=== PATIENT | female | born 1940 | race Caucasian/White ===

== ENCOUNTER 2024-06-03 14:16 | Emergency (ER) | payer MEDICARE, OTHER, SELFPAY ==
[2024-06-03 14:23] VITALS: BP 131/67
[2024-06-03 14:59] LABS: % Basophils 0.2 % (0-2); % Eosinophils 1.6 % (0-6); % Immature Granulocytes 0.4 % (0-0.5); % Monocytes 6.1 % (1.7-9.3); % Neutrophils 77.7 % (42.2-75.2); Absolute Eosinophils 0.2 10^3/uL (0-0.7); Absolute Lymphocytes 1.6 10^3/uL (1.2-3.4); Absolute Monocytes 0.7 10^3/uL (0.1-0.6); Absolute Neutrophils 8.8 10^3/uL (1.4-6.5); Hematocrit 36.5 % (37.0-47.0); Hemoglobin 12.3 g/dL (12.0-16.0); Mean Corp Hgb Conc. 33.7 g/dL (33.0-37.0); Mean Corpuscular Hgb 31.1 pg (27.0-31.0); Mean Corpuscular Volume 92.4 fL (81.0-99.0); Mean Platelet Volume 8.9 fL (7.4-10.4); Nucleated Red Blood Cells % 0 %; Platelet Count 224 10^3/uL (130-400); Red Blood Cell Count 3.95 10^6/uL (4.20-5.40); Red Cell Dist. Width 13.4 % (11.5-14.5); White Blood Cell Count 11.3 10^3/uL (4.8-10.8)
[2024-06-03 15:13] LABS: ALT (SGPT) 15 U/L (0-35); AST (SGOT) 20 U/L (14-36); Albumin 3.8 g/dl (3.5-5.0); Alkaline Phosphatase 70 U/L (38-126); Blood Urea Nitrogen 16 mg/dl (7-17); Calcium 9.2 mg/dl (8.4-10.2); Carbon Dioxide 24 mmol/L (22-30); Chloride 95 mmol/L (98-107); Glucose 145 mg/dl (70-99); Potassium 4.6 mmol/L (3.5-5.1); Sodium 128 mmol/L (135-145); Total Bilirubin 0.6 mg/dl (0.2-1.3); Total Protein 6.4 g/dl (6.3-8.2); eGFR > 60.00
[2024-06-03 15:33] LABS: Troponin I < 0.012 ng/ml
[2024-06-03 17:54] VITALS: BMI 26.7
[2024-06-03 18:00] VITALS: BP 136/55
--- NOTE | 2024-06-03 18:39 | ED.SKININJ ---
HPI-Injury
General
Chief Complaint: Head Injury
Source: patient
Exam Limitations: none
Time Seen by Provider: 06/03/24 18:21
History of Present Illness-Injury
Initial Injury comments:
83-year-old female presents after a fall. She was standing in line at the pharmacy started to feel weak and had some discomfort between her shoulders and fell. She did not pass out. She felt the discomfort in her shoulders went away but she hit
her head on a shelf on the way down. She is on Eliquis for history of A-fib has pacemaker. No chest pain. No shortness of breath. Her only complaint right now is pain to the right side of her head from the fall dorsalis denies arm or leg pain.
No paresthesias. She has been ambulatory here since the fall without any difficulty.
Past History
Past History
ED Past Medical History: HTN, Hypothyroidism, Other (OA), Other (IBS) and Other (Prior admission with bacteremia)
ED Past Surgical History: Appendectomy, Cholecystectomy and Gynecological (Hysterectomy)
Social History
Tobacco: Non-smoker
Alcohol: None
Drug: None
Personal:
Living: alone
Employment: Retired
Family History
Family History: Other (Noncontributory)
Phy Exam
Physical Exam
Physical Exam:
General: Well-appearing female no acute respiratory distress
HEENT normocephalic pupils equal round reactive to light 2 cm superficial laceration right parietal scalp
Musculoskeletal exam: The cervical spine is nontender. She is nontender over the lumbar spine or sacrum
Heart: Regular rate and rhythm
Lungs: Clear no wheeze
Vascular: 2+ symmetric pulses bilateral wrist
Neurologic: Alert and oriented no facial asymmetry good strength to the upper and lower extremities
Course
Orders/Labs/Results
Orders:
Orders
06/03/24 14:18
Electrocardiogram (*1) Urgent
Reason for Study: Fatigue / Weakness
CT Head W/o Iv Contrast Urgent
Comment:
Reason For Exam: head injury
06/03/24 14:19
EKG- Treatment ONCE
06/03/24 14:46
Complete Blood Count/With Diff Urgent
Comprehensive Metabolic Panel Urgent
Troponin I Urgent
06/03/24 18:31
Interrogate Pacemaker- Treatment ONCE
Abnormal Lab Results
06/03/24
14:46
WBC 11.3 H 10^3/uL
(4.8-10.8)
RBC 3.95 L 10^6/uL
(4.20-5.40)
Hct 36.5 L %
(37.0-47.0)
MCH 31.1 H pg
(27.0-31.0)
Absolute Neuts (auto) 8.8 H 10^3/uL
(1.4-6.5)
Absolute Monos (auto) 0.7 H 10^3/uL
(0.1-0.6)
Neutrophils % 77.7 H %
(42.2-75.2)
Lymphocytes % 14.0 L %
(20.5-51.1)
Sodium 128 L mmol/L
(135-145)
Chloride 95 L mmol/L
(98-107)
Glucose 145 H mg/dl
(70-99)
06/03/24 14:46
06/03/24 14:46
Vital Signs
Initial and Last Documented VS:
Initial Vital Signs
Temp Pulse Resp BP Pulse Ox
98.2 F 77 18 131/67 96
06/03/24 14:23 06/03/24 14:23 06/03/24 14:23 06/03/24 14:23 06/03/24 14:23
Last Documented Vital Signs
Temp Pulse Resp BP Pulse Ox
97.7 F 80 18 136/55 94
06/03/24 17:56 06/03/24 17:56 06/03/24 17:56 06/03/24 18:00 06/03/24 17:56
MDM/Problems Addressed
Differential Diagnosis Includes:
Fall. Question vasovagal episode versus arrhythmia. Patient did have discomfort in her shoulders however this is very transient and resolved within seconds. Currently no discomfort. She is not hyper. Do not clinically suspect dissection.
Concern with head strike on Eliquis for possible intracranial hemorrhage. CT of the head was reviewed and is negative for intracranial injury other than a laceration to the scalp. Laceration of the scalp will be closed with skin patricia. Will
check labs and interrogate pacemaker
*Critical Care Note
Total Time (30-74mins, 75-104mins- exclusive of procedures): Not Applicable
Update Note
Update Note:
Pacemaker interrogated. No significant concern on report. The wound on the head was irrigated with saline and closed with skin patricia. 5 skin patricia were needed to close the wound. Labs reviewed without significant finding. Vital signs
remained stable. Stable for discharge.
ED Attending Note
-
Portions of this chart may have been created with voice recognition software.� Occasional wrong word or��sound alike� substitutions may have occurred due to the inherent limitations of voice recognition software.
Discharge Plan
Departure
Patient Disposition: Home (Routine Discharge)
Date of Disposition: 06/03/24
Time of Disposition: 19:53
Patient with high blood pressure during this ER visit?: No
Discharge Problem:
Fall, Laceration of scalp
Instructions: Head Injury in Adults (DC)
Prescriptions:
No Action
acyclovir 400 MG tablet
400 mg PO DAILY
aspirin 81 MG tablet,delayed release (DR/EC)
162 mg PO DAILY
zolpidem 10 MG tablet
10 mg PO HSPRN PRN (Reason: sleep)
ondansetron 4 MG tablet,disintegrating
4 mg PO Q8HPRN PRN (Reason: nausea)
Diazide
37.5 mg PO DAILY
Fluctonase
2 spray inhalation DAILY
Rivero Probiotic
2 tab PO DAILY
levothyroxine [Synthroid] 88 MCG tablet
88 mcg PO DAILY
alprazolam 0.25 MG tablet
0.25 mg PO Q8HPRN PRN (Reason: anxiety)
ammonium lactate [Lac-Hydrin] 385 GM cream
280 gm TP PRN PRN (Reason: skin irritation)
polyethylene glycol 3350 [Miralax] 119 GM powder
119 gm PO PRN PRN (Reason: consipation)
metronidazole 500 MG tablet
500 mg PO TID Qty: 30 0RF
levofloxacin 500 MG tablet
500 mg PO DAILY Qty: 10 0RF
tramadol 50 MG tablet
50 mg PO Q8HPRN PRN (Reason: pain) Qty: 12 0RF
Referrals:
Gino Anaya MD [Family Provider] -
Activity Restrictions/Additional Instructions:
Have patricia removed in 1 week. You may take Tylenol for pain. Return if worse otherwise follow-up with your family doctor
Interventions
Interventions:
*Risk Screen - Suicide Last Done: 06/03/24 14:23
*General Assessment Last Done: 06/03/24 14:23
*Neglect/Abuse Screening Last Done: 06/03/24 14:23
*ED COVID-19 Vaccine History Last Done: 06/03/24 14:23
ED- Neurological Assessment Last Done: 06/03/24 18:01
ED-Skin Assessment Last Done: 06/03/24 18:01
Discharge Date and Time
Print Language: NEPALI
== END 2024-06-03 20:06 | disposition home or self-care (01) ==
LOC: EMR 14:16
PROVIDERS: Emergency Medicine; EMERGENCY PHYSICIAN Student in an Organized Health Care Education/Training Program; FAMILY PHYSICIAN Internal Medicine
DX: S01.01XA Laceration without foreign body of scalp, initial encounter (principal); M25.512 Pain in left shoulder; M25.511 Pain in right shoulder; R53.1 Weakness; W18.39XA Other fall on same level, initial encounter; Y92.512 Supermarket, store or market as the place of occurrence of the external cause; Y99.8 Other external cause status; I48.91 Unspecified atrial fibrillation; I10 Essential (primary) hypertension; E03.9 Hypothyroidism, unspecified; K58.9 Irritable bowel syndrome, unspecified; M19.90 Unspecified osteoarthritis, unspecified site; Z95.0 Presence of cardiac pacemaker; Z79.01 Long term (current) use of anticoagulants; Z90.49 Acquired absence of other specified parts of digestive tract; Z88.1 Allergy status to other antibiotic agents; Z88.0 Allergy status to penicillin; Z88.2 Allergy status to sulfonamides
CPT/HCPCS: 99285; 93288; 12001; 70450; 80053; 84484; 85025; 93005

== ENCOUNTER 2024-07-04 17:25 | Emergency (ER) | payer MEDICARE, OTHER, SELFPAY ==
[2024-07-04 18:01] VITALS: BP 122/73
[2024-07-04 18:31] LABS: % Basophils 0.4 % (0-2); % Immature Granulocytes 0.5 % (0-0.5); % Lymphocytes 14.1 % (20.5-51.1); Absolute Basophils 0.1 10^3/uL (0-0.2); Absolute Eosinophils 0.1 10^3/uL (0-0.7); Absolute Immature Granulocytes 0.1 10^3/uL (0-0.05); Absolute Lymphocytes 1.9 10^3/uL (1.2-3.4); Absolute Monocytes 0.9 10^3/uL (0.1-0.6); Absolute Neutrophils 10.4 10^3/uL (1.4-6.5); Hematocrit 38.7 % (37.0-47.0); Mean Corp Hgb Conc. 33.6 g/dL (33.0-37.0); Mean Corpuscular Hgb 31.9 pg (27.0-31.0); Mean Corpuscular Volume 94.9 fL (81.0-99.0); Mean Platelet Volume 9.3 fL (7.4-10.4); Nucleated Red Blood Cells % 0 %; Platelet Count 270 10^3/uL (130-400); Red Blood Cell Count 4.08 10^6/uL (4.20-5.40); White Blood Cell Count 13.5 10^3/uL (4.8-10.8)
[2024-07-04 18:45] LABS: ALT (SGPT) 15 U/L (0-35); AST (SGOT) 24 U/L (14-36); Albumin 4.3 g/dl (3.5-5.0); Alkaline Phosphatase 88 U/L (38-126); Blood Urea Nitrogen 28 mg/dl (7-17); Calcium 9.1 mg/dl (8.4-10.2); Carbon Dioxide 23 mmol/L (22-30); Chloride 98 mmol/L (98-107); Glucose 153 mg/dl (70-99); Potassium 4.3 mmol/L (3.5-5.1); Sodium 131 mmol/L (135-145); Total Bilirubin 0.8 mg/dl (0.2-1.3); Total Protein 6.8 g/dl (6.3-8.2); eGFR > 60.00
[2024-07-04 18:55] LABS: Troponin I 0.012 ng/ml
[2024-07-04 20:44] VITALS: BMI 26.3
[2024-07-04 20:50] VITALS: BP 128/60
[2024-07-04 21:03] VITALS: BP 156/67
[2024-07-04 22:00] VITALS: BP 126/62
[2024-07-04 22:25] LABS: Magnesium 2.3 mg/dl (1.6-2.3)
--- NOTE | 2024-07-04 22:52 | ED.GENMED ---
History of Present Illness
General
Chief Complaint: Heart Rate Problem
Source: patient
Exam Limitations: none
Time Seen by Provider: 07/04/24 21:16
Nursing documentation reviewed up to this point in time: agreed with
History of Present Illness
History of Present Illness:
pt is a 83 y/o F wit h/o afib, s/p pacer, hyothryoid
says she was feeling fine today
brushed her teeth around 4:15 pm and suddenly when finished she started having elevated HR
racing heart rate and sob; she had no pain in her chest
no fever/chills, chestp ain, syncope, vomiting
pt says she felt like that for aboutt 15 minutes and then EMS got there, she was still fast for their first ekg which was transmitted to the [facility] as SVT hr 180s
then pt pushed herself off the couch and suddnely broke and now feels fine
she has no symptoms here
no alcohol
eating/drinking normally
no recent illness
Past History
Past History
ED Past Medical History: HTN, Hypothyroidism, Other (OA), Other (IBS) and Other (Prior admission with bacteremia)
ED Past Surgical History: Appendectomy, Cholecystectomy and Gynecological (Hysterectomy)
Social History
Tobacco: Non-smoker
Alcohol: None
Drug: None
Personal:
Living: alone
Employment: Retired
Family History
Family History: Other (Noncontributory)
Review of Systems
Review of Systems
Allergies reviewed?: Yes
All Other Systems: Not applicable
Phy Exam
Physical Exam
Physical Exam:
GENERAL: Alert , in no apparent distress
EYE: pupils equal and reactive
NECK: Supple
ENT: o/p clr, mmm.
CARDIAC: Regular rate and rhythm .
LUNGS: Clear breath sounds bilaterally, no acute respiratory distress, no wheezes/rales/rhonchi
ABDOMEN: Soft, without focal tenderness, no r/g, no cvat, normal bowel sounds
NEUROLOGICAL: Alert and oriented, no focal neuro deficits
SKIN: Warm and dry, skin intact.
MUSCULOSKELETAL: No edema, well perfused. neg pelon's sign
PSYCH: Normal and appropriate interaction.
Course
Orders/Labs/Results
Orders:
Orders
07/04/24 18:05
Electrocardiogram (*1) Urgent
Reason for Study: Palpitations
07/04/24 18:06
EKG- Treatment ONCE
07/04/24 18:22
CMP [Comprehensive Metabolic Panel] Urgent
Complete Blood Count/With Diff Urgent
Magnesium Urgent
TSH Reflex To Free T4 Urgent
Comment: ADD ON
Troponin I Urgent
07/04/24 21:53
Add On- LAB Urgent
Tests Added?: magnesium, tsh reflex t 4
Abnormal Lab Results
07/04/24
18:22
WBC 13.5 H 10^3/uL
(4.8-10.8)
RBC 4.08 L 10^6/uL
(4.20-5.40)
MCH 31.9 H pg
(27.0-31.0)
Abs Immat Gran (auto) 0.1 H 10^3/uL
(0-0.05)
Absolute Neuts (auto) 10.4 H 10^3/uL
(1.4-6.5)
Absolute Monos (auto) 0.9 H 10^3/uL
(0.1-0.6)
Neutrophils % 77.0 H %
(42.2-75.2)
Lymphocytes % 14.1 L %
(20.5-51.1)
Sodium 131 L mmol/L
(135-145)
BUN 28 H mg/dl
(7-17)
Glucose 153 H mg/dl
(70-99)
07/04/24 18:22
07/04/24 18:22
Vital Signs
Initial and Last Documented VS:
Initial Vital Signs
Temp Pulse Resp BP Pulse Ox
36.6 C 84 16 122/73 99
07/04/24 18:01 07/04/24 18:01 07/04/24 18:01 07/04/24 18:01 07/04/24 18:01
Last Documented Vital Signs
Temp Pulse Resp BP Pulse Ox
36.6 C 81 13 126/62 98
07/04/24 18:01 07/04/24 22:00 07/04/24 22:00 07/04/24 22:00 07/04/24 22:00
MDM/Problems Addressed
Differential Diagnosis Includes:
SVT, atrial tachycardia, ventricular tachycardia
MDM/Problems Addressed:
83-year-old female with a history of a pacemaker for bradycardia/pauses here for an episode of elevated heart rate around 415 4:30 PM today. Patient says she did not pass out but was feeling her heart racing. She had noted discomfort in her chest.
Patient had an EKG by EMS showing that abnormal rhythm but then when she got off the couch to come to the hospital it broke. She has been in the 80s since and has felt fine. She has been up to the bathroom without any difficulty. I received a
phone call from [facility] after her pacemaker was interrogated which showed a narrow complex tachycardia consistent with SVT. Patient has been stable here
mag normal
sodium slightly low 131 but higher than preivous
k normal
tsh pending
amticipate discharge home
TSH noraml
no episodes of svt while here
feels well
d/c ed attending
*Critical Care Note
Total Time (30-74mins, 75-104mins- exclusive of procedures): Not Applicable
ED Attending Note
-
Portions of this chart may have been created with voice recognition software.� Occasional wrong word or��sound alike� substitutions may have occurred due to the inherent limitations of voice recognition software.
Discharge Plan
Departure
Patient Disposition: Home (Routine Discharge)
Date of Disposition: 07/04/24
Time of Disposition: 23:16
Patient with high blood pressure during this ER visit?: No
Condition: Fair
Covid-19: Not Applicable
Discharge Problem:
Paroxysmal SVT (supraventricular tachycardia)
Instructions: Supraventricular tachycardia (SVT)
Prescriptions:
No Action
acyclovir 400 MG tablet
400 mg PO DAILY
aspirin 81 MG tablet,delayed release (DR/EC)
162 mg PO DAILY
zolpidem 10 MG tablet
10 mg PO HSPRN PRN (Reason: sleep)
ondansetron 4 MG tablet,disintegrating
4 mg PO Q8HPRN PRN (Reason: nausea)
Diazide
37.5 mg PO DAILY
Fluctonase
2 spray inhalation DAILY
Rivero Probiotic
2 tab PO DAILY
levothyroxine [Synthroid] 88 MCG tablet
88 mcg PO DAILY
alprazolam 0.25 MG tablet
0.25 mg PO Q8HPRN PRN (Reason: anxiety)
ammonium lactate [Lac-Hydrin] 385 GM cream
280 gm TP PRN PRN (Reason: skin irritation)
polyethylene glycol 3350 [Miralax] 119 GM powder
119 gm PO PRN PRN (Reason: consipation)
metronidazole 500 MG tablet
500 mg PO TID Qty: 30 0RF
levofloxacin 500 MG tablet
500 mg PO DAILY Qty: 10 0RF
tramadol 50 MG tablet
50 mg PO Q8HPRN PRN (Reason: pain) Qty: 12 0RF
Referrals:
Grisel Antonio, DO [Family Provider] - Follow up in 2-3 days
Activity Restrictions/Additional Instructions:
YOUR PACEMAKER COMPANY CONFIRMED THAT YOU HAD SUPRAVENTRICULAR TACHYCARDIA WHICH RESOLVED ON ITS OWN
TRY TO AVOID CAFFEINE, DEHYDRATION, DECONGESTANTS THESE CAN TRIGGER OTHER EVENTS
FOLLOW UP WITH YOUR PLANISHER
RETURN LOVE CONCERNS: PASSING OUT, ANOTHER EPISODE THAT DOESN'T BREAK WITH TRYING VAGAL MANEUVERS (BEARING DOWN, OR PUTTING YOUR THUMB IN YOUR MOUTH AND BLOWING HARD)
Interventions
Interventions:
*Risk Screen - Suicide Last Done: 07/04/24 18:01
*General Assessment Last Done: 07/04/24 20:44
*Neglect/Abuse Screening Last Done: 07/04/24 18:01
ED- Fall Risk Assessment Last Done: 07/04/24 23:44
*ED COVID-19 Vaccine History Last Done: 07/04/24 20:44
*Nursing Disposition Last Done: 07/04/24 23:44
ED- Cardiac Assessment Last Done: 07/04/24 20:44
ED- Pulmonary Assessment Last Done: 07/04/24 20:44
Discharge Date and Time
Discharge Date/Time: 07/04/24 23:45
Print Language: STATELESS
[2024-07-04 23:12] LABS: TSH Reflex To Free T4 2.11 uIU/ml (0.47-4.68)
== END 2024-07-04 23:45 | disposition home or self-care (01) ==
LOC: EMR 17:25
PROVIDERS: EMERGENCY PHYSICIAN Emergency Medicine; FAMILY PHYSICIAN Family Medicine
DX: I47.19 Other supraventricular tachycardia (principal); Z95.0 Presence of cardiac pacemaker
CPT/HCPCS: 99284; 93288; 80053; 83735; 84443; 84484; 85025; 93005